=== PATIENT | male | born 1990 | race Caucasian/White ===

== ENCOUNTER 2017-09-13 11:27 | Emergency (ER) | payer OTHER ==
--- NOTE | 2017-09-13 11:53 | Emergency Department Report ---
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 snorting "Ice" since last night til 5 am, along with drinking beers; around 9am, started having constant left sided CP and SOB, with 1 episode of non-bloody vomiting; denies abdominal pain and fevers; denies SI, HI and hallucinations - ROS Review of Systems: Negative except for those stated in HPI - Exam Vital Signs: Vital Signs 09/13/17 11:32 Temperature 98.8 F Pulse Rate 133 H Respiratory 16 Rate Blood Pressure 134/77 O2 Sat by Pulse 98 Oximetry Physical Exam: NAD Tachycardic, regular rhythm CTAB Abd - soft, nontender, non-distended MSE screening note: Focused history and physical exam performed. Due to findings the following was ordered: EKG, blood work, urine Patient to be seen by provider in Main ED ED Disposition for MSE Condition: Stable
[2017-09-13 14:34] LABS: Hematocrit 46.8 % (35.5-45.6); Hemoglobin 16.2 gm/dl (11.8-15.2); Mean Corpuscular HGB Conc 35 % (32-34); Mean Corpuscular Hemoglobin 33 pg (28-32); Mean Corpuscular Volume 96 fl (84-94); Platelet Count 244 K/mm3 (140-440); Red Blood Count 4.87 M/mm3 (3.65-5.03); Red Cell Distribution Width 13.1 % (13.2-15.2); White Blood Count 6.6 K/mm3 (4.5-11.0)
[2017-09-13 14:49] LABS: Alanine Aminotransferase 15 units/L (7-56); Albumin 5.2 g/dL (3.9-5); Albumin/Globulin Ratio 1.8 %; Alkaline Phosphatase 60 units/L (35-129); Anion Gap 26 mmol/L; BUN/Creatinine Ratio 17; Blood Urea Nitrogen 12 mg/dL (9-20); Calcium 10.1 mg/dL (8.4-10.2); Carbon Dioxide 22 mmol/L (22-30); Chloride 98.9 mmol/L (98-107); Glucose 104 mg/dL (75-100); Potassium 3.9 mmol/L (3.6-5.0); Sodium 143 mmol/L (137-145); Total Protein 8.1 g/dL (6.3-8.2)
[2017-09-13 16:09] LABS: Urine Drugs of Abuse Note Disclamer
[2017-09-13] MEDS ORDERED: ATIVAN IV ONE (23:40)
[2017-09-13] MEDS ORDERED: NACL 0.9% 1000 ML 1,000 ML IV ONE (23:40)
--- NOTE | 2017-09-13 23:56 | Emergency Department Report ---
HPI - General Chief Complaint: Overdose Time Seen by Provider: 09/13/17 11:47 - HPI HPI: Room 26 The patient is a 27-year-old male presenting with a chief complaint of palpitations and substance abuse. The patient states she went on a binge of cocaine and methamphetamines from 20:00 last night until 05:00 this morning. Patient states at 05:00 to develop palpitations and coldness in his arms and hands. Patient states she became diaphoretic and had occasional shortness of breath. 07:00 this morning he had pressure on his chest but this has since resolved. Patient now only complains of feeling tingling in bilateral hands. Location: [See above] Duration: Since 05:00 Quality: Palpitations, pressure, numbness Severity: Mild Modifying factors: [see above] Context: [see above] Mode of transportation: [not driving] ED Past Medical Hx - Past Medical History Previous Medical History?: No - Surgical History Past Surgical History?: No - Family History Family history: no significant - Social History Smoking Status: Current Every Day Smoker (1 pack per day) Substance Use Type: Alcohol (occasional), Cocaine, Methamphetamines ED Review of Systems ROS: Stated complaint: POSSIBLE OVERDOSE Other details as noted in HPI Constitutional: diaphoresis Respiratory: shortness of breath Cardiovascular: chest pain, palpitations Neurological: paresthesias Physical Exam - Physical Exam Vital Signs: Vital Signs 09/13/17 09/13/17 11:32 22:50 Temperature 98.8 F 99.2 F Pulse Rate 133 H 85 Respiratory 16 20 Rate Blood Pressure 134/77 Blood Pressure 132/72 [Left] O2 Sat by Pulse 98 100 Oximetry Physical Exam: GENERAL: The patient is well-developed well-nourished male lying on stretcher not appearing to be in acute distress. [] HEENT: Normocephalic. Atraumatic. Extraocular motions are intact. Patient has moist mucous membranes. NECK: Supple. Trachea midline CHEST/LUNGS: Clear to auscultation. There is no respiratory distress noted. HEART/CARDIOVASCULAR: Regular. There is no tachycardia. There is no gallop rub or murmur. ABDOMEN: Abdomen is soft, nontender. Patient has normal bowel sounds. There is no abdominal distention. SKIN: There is no rash. There is no edema. There is no diaphoresis. NEURO: The patient is awake, alert, and oriented. The patient is cooperative. The patient has normal speech MUSCULOSKELETAL: There is no evidence of acute injury. ED Course Vital Signs 09/13/17 09/13/17 11:32 22:50 Temperature 98.8 F 99.2 F Pulse Rate 133 H 85 Respiratory 16 20 Rate Blood Pressure 134/77 Blood Pressure 132/72 [Left] O2 Sat by Pulse 98 100 Oximetry - Reevaluation(s) Reevaluation #1: 09/14/17 00:57 Patient feels improved. Asymptomatic. Strong warnings given ED Medical Decision Making - Lab Data Result diagrams: 09/13/17 11:56 09/13/17 11:56 Laboratory Tests 09/13/17 09/13/17 09/13/17 11:56 11:56 11:56 WBC 6.6 RBC 4.87 Hgb 16.2 H Hct 46.8 H MCV 96 H MCH 33 H MCHC 35 H RDW 13.1 L Plt Count 244 Sodium 143 Potassium 3.9 Chloride 98.9 Carbon Dioxide 22 Anion Gap 26 BUN 12 Creatinine 0.7 L Estimated GFR > 60 BUN/Creatinine Ratio 17 Glucose 104 H Calcium 10.1 Total Bilirubin 0.60 AST 28 ALT 15 Alkaline Phosphatase 60 Total Creatine Kinase CK-MB (CK-2) CK-MB (CK-2) Rel Index Troponin T Total Protein 8.1 Albumin 5.2 H Albumin/Globulin Ratio 1.8 Salicylates < 0.3 L Urine Opiates Screen Urine Methadone Screen Acetaminophen Ur Barbiturates Screen Ur Phencyclidine Scrn Ur Amphetamines Screen U Benzodiazepines Scrn Urine Cocaine Screen U Marijuana (THC) Screen Drugs of Abuse Note 09/13/17 09/13/17 09/13/17 11:56 16:02 23:43 WBC RBC Hgb Hct MCV MCH MCHC RDW Plt Count Sodium Potassium Chloride Carbon Dioxide Anion Gap BUN Creatinine Estimated GFR BUN/Creatinine Ratio Glucose Calcium Total Bilirubin AST ALT Alkaline Phosphatase Total Creatine Kinase 608 H CK-MB (CK-2) 2.1 CK-MB (CK-2) Rel Index 0.3 Troponin T < 0.010 Total Protein Albumin Albumin/Globulin Ratio Salicylates Urine Opiates Screen Presumptive negative Urine Methadone Screen Presumptive negative Acetaminophen < 15.0 Ur Barbiturates Screen Presumptive negative Ur Phencyclidine Scrn Presumptive negative Ur Amphetamines Screen Presumptive positive U Benzodiazepines Scrn Presumptive negative Urine Cocaine Screen Presumptive negative U Marijuana (THC) Screen Presumptive negative Drugs of Abuse Note Disclamer - EKG Data -: EKG Interpreted by Me EKG shows normal: sinus rhythm Rate: tachycardia (118 bpm) - EKG Data When compared to previous EKG there are: previous EKG unavailable Interpretation: other (no ischemic changes seen) - Radiology Data Radiology results: image reviewed (chest x-ray) interpreted by me: Chest x-ray-no focal infiltrates, no pneumothorax - Differential Diagnosis ACS, GERD, pericarditis, polysubstance abuse Critical care attestation.: If time is entered above; I have spent that time in minutes in the direct care of this critically ill patient, excluding procedure time. ED Disposition Clinical Impression: Amphetamine abuse, Palpitations Disposition: [id number] TO HOME OR SELFCARE Is pt being admited?: No Does the pt Need Aspirin: No Condition: Stable Instructions: Cocaine Abuse (ED), Methamphetamine Abuse (ED) Additional Instructions: Return to the emergency department immediately should you develop worsening symptoms, fever, inability to tolerate food or liquid or any other concerns. Referrals: PRIMARY CARE, [Primary Care Provider] - 3-5 Days Time of Disposition: 00:57
[2017-09-14 00:12] LABS: Creatine Kinase MB 2.1 ng/mL (0.0-4.0)
[2017-09-14 00:14] LABS: Creatine Kinase 608 units/L (55-170)
--- NOTE | 2017-09-14 00:16 | XRay Report ---
FINAL REPORT EXAM: XR CHEST 1V AP HISTORY: chest pain TECHNIQUE: An AP upright portable view of the chest was submitted. There are no previous studies available for comparison. FINDINGS: Heart size and mediastinum appear normal. There are no localized infiltrates or congestion. Pleural fluid is not seen. There are EKG leads overlying the chest wall. The bones and soft tissues do not show any acute changes. IMPRESSION: No active chest disease.
[2017-09-14 00:56] VITALS: BP 123/70
[2017-09-14 01:23] LABS: Creatine Kinase MB 1.7 ng/mL (0.0-4.0)
[2017-09-14 01:26] LABS: Creatine Kinase 501 units/L (55-170)
== END 2017-09-14 01:15 | disposition home or self-care (01) ==
LOC: ED 11:27
DX: R00.2 Palpitations (principal); F15.10 Other stimulant abuse, uncomplicated; F14.10 Cocaine abuse, uncomplicated; F17.200 Nicotine dependence, unspecified, uncomplicated
CPT/HCPCS: 36415; 71010; 80053; 80307; 82550; 82553; 84484; 85027; 93005; 93010; 96361; 96374; 99284; G0480; J2060; J7030; 80320